=== PATIENT | female | born 1930 | race Caucasian/White ===

== ENCOUNTER 2016-12-04 14:00 | Inpatient (IN) | payer MEDICARE, BC ==
[~2016-12-04] VITALS: Ht 149.9 cm; Wt 86.0 kg
--- NOTE | ~2016-12-04 | HP ---
PATIENT'S NAME: ALMA [facility]A [facility] AGE: 86 Y [address] ROOM: [id number] [place], [place] [address] LOCATION: GPCU ADMIT DATE: 12/04/2016 History & Physical DISCHARGE DATE: FAMILY PHYSICIAN: PHYSICIAN, UNKNOWN ATTENDING PHYSICIAN: PRATIK SPAIN DATE OF SERVICE: CHIEF COMPLAINT: Shortness of breath. HISTORY OF PRESENT ILLNESS: This is an 86-year-old female, who says that she has been experiencing shortness of breath of acute onset for the last 2 months on exertion and progressively getting worse. Just a few days ago at the place where she lives, the medical staff put her on oxygen for hypoxia. She did get some relief when oxygen was placed. However, she still gets shortness of breath on exertion. Today, this morning when she was doing her hair, she felt dizzy and fell to the ground hitting the left frontal area of the head and also the left foot against the back-top, but she did not pass out. The same thing happened two days ago, she also did not pass out. She called for help today after the fall, and she was brought by the medical staff over there at the living facility to the emergency room in [facility], for evaluation. The patient states that she felt weak in general and felt dizzy and then she fell. Her appetite has also been poor recently. Over there in [place], [place], the patient had an EKG performed which was unremarkable with sinus rhythm without any acute ischemic changes, normal NV interval, normal QRS, and normal QTc. The patient also had x-ray of the left knee which was no evidence of fracture or effusion. The patient also had a CT of the head without contrast which showed no acute finding. No mass. No hemorrhage. No fracture. The patient also had a blood work performed, chemistry, and LFT which were unremarkable. The patient was about to be discharged home, but the caregiver told the ER physician over there that the patient was hypoxic and required more oxygen and also complaining of shortness of breath on exertion for the last 2 months. That is when they did a CTPA and it showed pulmonary emboli in the right upper lobe and the right lower lobe and the lateral segment of the middle lobe, all in the right lung and also changes consistent with chronic bronchitis. Also, pulmonary arterial hypertension with dilatation of the central pulmonary arteries. Because of that, [place], called me for transfer due to the finding of the pulmonary emboli. Her blood pressure has been actually high in the 170s, therefore, is not a hemodynamically unstable PE. Her oxygen requirement is 4 L nasal cannula saturating at 94%. There is no chest pain. The patient was transferred here for higher level of care. I instructed the staff over there in [place], PATIENT'S NAME: [facility] AGE: 86 Y [address] ROOM: [id number] [place], [place] [address] LOCATION: GPCU ADMIT DATE: 12/04/2016 History & Physical DISCHARGE DATE: FAMILY PHYSICIAN: PHYSICIAN, UNKNOWN ATTENDING PHYSICIAN: PRATIK SPAIN, to start IV heparin bolus, followed by drip for the PE protocol and send over here. REVIEW OF SYSTEMS: As mentioned in the history of present illness. All other system review are negative, except those mentioned in the History of Present Illness. PAST MEDICAL HISTORY: 1. Likely has COPD from secondhand smoking, exposed to smoke from her co- workers, and she was also a former smoker but only for 2 years with half pack per day. She quit about 40 years ago. She does not use oxygen at home, but was recently put on oxygen due to the PE that was not diagnosed. 2. Hypertension. 3. Anxiety disorder. 4. Hypothyroidism. 5. Coronary artery disease, status post drug-eluting stent x2 many years ago. 6. Diastolic congestive heart failure. 7. Peptic ulcer disease back in 2007. 8. Gastroesophageal reflux disease, secondary to hiatal hernia. 9. History of right breast cancer, status post resection without radiation and without chemotherapy back in 1979, already cured. ALLERGIES: CHLORTHALIDONE, DEMEROL, DIPHENOXYLATE, ATROPINE, FENTANYL, HYDROCHLOROTHIAZIDE, CEFTRIAXONE, LIPITOR, PENICILLIN, AND LESCOL. HOME MEDICATIONS: Currently has been reconciled. SOCIAL HISTORY: The patient was a former cigarette smoker. She quit about 40 years ago. She used to smoke about half pack per day for 2 years, but she was exposed to secondhand smoke for unknown time from her co-worker. She denies any alcohol or any illegal drug use. FAMILY HISTORY: Both parents from coronary artery disease at advanced age. PAST SURGICAL HISTORY: 1. Status post cholecystectomy. 2. Status post right breast cancer, status post resection. 3. Status post appendectomy. 4. Status post hemorrhoidectomy. PATIENT'S NAME: [facility] AGE: 86 Y [address] ROOM: [id number] [place], [place] [address] [facility] ADMIT DATE: 12/04/2016 History & Physical DISCHARGE DATE: FAMILY PHYSICIAN: PHYSICIAN, UNKNOWN ATTENDING PHYSICIAN: PRATIK SPAIN 5. Status post left knee replacement surgery in the past. 6. Status post cataract surgery. 7. Status post 2 drug-eluting stents placed to the LAD many years ago. PHYSICAL EXAMINATION: VITAL SIGNS AT THE TIME OF MY DICTATION: Temperature 97, blood pressure 170/90, heart rate 85, saturation 94% on 4 L nasal cannula, respiratory rate 16. GENERAL APPEARANCE: Alert and oriented x3. A very pleasant female in no acute distress. HEENT: Pupils are equally round and reactive to light. Extraocular muscles are intact. Nasal turbinates are normal bilaterally. Moist oral mucosa. No oral thrush. NECK: No JVD. No carotid bruits. No cervical lymphadenopathy. CARDIOVASCULAR: Regular rate and rhythm. No murmur. No rubs. No gallops. RESPIRATORY: Clear. Chest wall nontender to palpation. ABDOMEN: Soft, nontender, nondistended, normal bowel sounds, no hepatosplenomegaly. EXTREMITIES: No edema in the upper or lower extremity. In the dorsal area of the left foot, there is ecchymosis from her recent fall. Pain to palpation as well in the ecchymosis area. Dorsalis pedis pulses are +2 bilaterally, symmetrical, and present. NEUROLOGIC: Grossly nonfocal. SKIN: Except ecchymosis in the left foot, otherwise no rash, no ulcer, no cyanosis. MUSCULOSKELETAL: No joint pain. No muscle pain, except the pain to palpation in the left foot in the area with ecchymosis. LABORATORY DATA: Laboratory data performed in the outside facility: Chemistry shows sodium 138, potassium 4.5, chloride 98, carbon dioxide 24, glucose 103, blood urea nitrogen 25, creatinine 0.67, calcium 9.1, albumin 3.7, total protein 6.4, AST 19, ALT 12, alkaline phosphatase 77, total bilirubin 0.6, and GFR 83. IMAGING STUDIES: EKG on admission shows sinus rhythm, heart rate of 65 beats per minute without any acute ischemic findings. Left knee x-ray today from the outside facility showed no fracture. CT of the head without contrast today from the outside facility showed no acute finding. CTPA from the outside facility today showed occlusive thrombus within segmental branches at the right upper lobe and the right lower lobe and the PATIENT'S NAME: [facility] AGE: 86 Y [address] ROOM: [id number] [place] [id number] LOCATION: GPCU ADMIT DATE: 12/04/2016 History & Physical DISCHARGE DATE: FAMILY PHYSICIAN: PHYSICIAN, UNKNOWN ATTENDING PHYSICIAN: PRATIK SPAIN lateral segment of the middle lobe. No additional emboli seen on the left. Pleural and parenchymal scarring is noted at the lung bases and the posterior right hemithorax. There are changes of chronic bronchitis as well. No mass or pleural effusion is demonstrated. There is no evidence of lymphadenopathy. Arteriosclerotic calcification and ectasia of the thoracic aorta is noted. There is dilatation of the central pulmonary arteries consistent with pulmonary arterial hypertension. Calcification of the LAD is noted. There is mild right ventricular and right atrial dilatation. Sections through the adrenals show bilateral nodular hyperplasia. ASSESSMENT AND PLAN: 1. Acute hypoxemic respiratory failure, secondary to right-sided pulmonary emboli: Heparin drip per PE protocol. Oxygen nasal cannula with a humidifier to keep the saturation above 90%. Once the patient is more stable, we can transition her to one of the newer agents of anticoagulation given that her kidney function is normal. Further plan depends on the clinical course. 2. Left foot pain: I will get x-ray of the left foot to make sure there is no fracture. 3. Decreased oral intake: She will be on aspiration precaution and fall precaution. I will give her Ensure one can p.o. t.i.d. with meals. She can have a cardiac diet. Encourage oral intake. There is no acute kidney injury, therefore, there is no need for IV hydration. 4. Hypertension: Blood pressure is currently in the 170s. Continue her home medication. 5. Prior history of peptic ulcer disease: This was many years ago. Given that she is on heparin drip right now, I will give her Protonix 40 mg p.o. b.i.d. 6. Chronic obstructive pulmonary disease based on CTPA: Not in exacerbation. There is no wheezing, no rhonchi, no rales, no crackles. Continue oxygen nasal cannula. Nebulization as necessary p.r.n. 7. PT, OT, and fall precaution. 8. Followup plan depends on clinical course. 9. Deep venous thrombosis prophylaxis: She is on heparin drip. Time spent on the day of admission was 40 minutes including chart review, examining the patient, interviewing the patient, addressing all the questions and concerns the patient had, and going over the plan of care with the nurse, the patient, and the patient's friend. PRATIK SPAIN MD PATIENT'S NAME: [facility] AGE: 86 Y [address] ROOM: [place] [address] [facility] ADMIT DATE: 12/04/2016 History & Physical DISCHARGE DATE: FAMILY PHYSICIAN: PHYSICIAN, UNKNOWN ATTENDING PHYSICIAN: PRATIK SPAIN CC/paola /[id number] D: 725 T: 046 HISTORY & PHYSICAL
--- NOTE | ~2016-12-04 | DS ---
PATIENT'S NAME: ALMA [facility]A [facility] AGE: 86 Y [address] ROOM: [id number] [place], [place] [address] LOCATION: GPCU ADMIT DATE: 12/04/2016 Discharge Summary DISCHARGE DATE: 12/08/2016 FAMILY PHYSICIAN: Shital Farrar MD ATTENDING PHYSICIAN: Orlin Garcia FINAL DIAGNOSES: 1. Right pulmonary emboli. 2. Acute hypoxic respiratory failure. 3. Left foot pain. 4. Essential hypertension. 5. Chronic obstructive pulmonary disease. HISTORY OF PRESENT ILLNESS: Please see the history and physical dictated by Dr. Garcia for details of admission. LABORATORY DATA: On admit, white blood cell count 5.8, hemoglobin 14.6, hematocrit 44.9, and platelet count 210, all these values remained stable during the hospital stay. Electrolytes on admission, sodium 139, potassium 4.2, chloride 100, CO2 31, BUN 28, and creatinine 0.8. X-ray of the left foot did not show any abnormalities other than osteopenia. HOSPITAL COURSE: The patient was accepted with a diagnosis of hypoxia with the thought that she may have a pulmonary edema and also evaluated of the left foot because of the falls. She was started on oxygen. She was empirically started on heparin drip. She did proceed with a CT scan, which did in fact show that she had a pulmonary embolism. A decision was to start her on Lovenox and convert her to Coumadin and trying to get her INR into the 2 range. Care Management was asked to see her as well. Her heart rates were on the low-side. She was monitored. She was improving; however, her INR was very slow to budge. I had a long discussion with the family regarding different anticoagulants, the risks and benefits of either, they did opt to start Eliquis, and decision was made to use this. Eliquis was started at 10 mg twice daily for 7 days then 5 mg twice daily with a plan for it lasting for 6 months. The Coumadin was withheld. The patient was planning to return to her assisted living facility that she was in [place], [place]. She did feel lightheaded and dizzy; so, the plan was to hold her for another day until she felt a little bit more stable. She did in fact feel better on the next day. She was felt to be stable for discharge. DISCHARGE MEDICATIONS: 1. Amlodipine 5 mg twice daily. 2. Proventil inhaled 2 puffs every 6 hours as needed. 3. Cough drops one as needed. 4. Propylene glycol eyedrops 1 drop as needed. PATIENT'S NAME: ALMA ROSA [facility] AGE: 86 Y [address] ROOM: [place] [address] LOCATION: GPCU ADMIT DATE: 12/04/2016 Discharge Summary DISCHARGE DATE: 12/08/2016 FAMILY PHYSICIAN: Shital Farrar MD ATTENDING PHYSICIAN: Orlin Garcia 5. Xanax 0.25 mg every 6 hours as needed for anxiety. 6. Synthroid 75 mcg daily. 7. Nitro 45 mg at bedtime. 8. Troy-3 fish oil 1 tablet daily. 9. Multivitamin daily. 10. Metoprolol tartrate 25 mg twice daily. 11. Pepcid 20 mg daily. 12. Calcium carbonate 1200 mg daily. 13. Gabapentin 800 mg twice daily. 14. Cholestyramine 4 g at bedtime. 15. Acetaminophen 500 mg every 4 hours. 16. Saline nose spray as needed. 17. Sodium chloride tablets 1 g every 48 hours. 18. Calcium carbonate 1-2 every 2 hours. 19. Tylenol 500-1000 mg every 6 hours as needed. 20. Lasix 40 mg daily. 21. Spironolactone 12.5 mg daily. 22. Quinapril 20 mg twice daily. 23. Colace 100 mg at bedtime. 24. Myrbetriq 25 mg every 48 hours. 25. MiraLAX 17 g daily. 26. Apixaban 10 mg twice daily for 7 days and then 5 mg twice daily. 27. Aspirin 81 mg daily. Overall, I did discuss this discharge at length with the patient's daughter and with Dr. Farrar, the patient's primary care provider. TRACE GARDNER MD LAW/modl /[id number] d: 12/23/16614 t: 01/06/17 1642, DISCHARGE SUMMARY
[2016-12-04] MEDS ORDERED: NORVASC5 MG PO (15:49)
[2016-12-04] MEDS ORDERED: PROVENTIL OR V6.7 GM INH (15:50)
[2016-12-04] MEDS ORDERED: COUGH DROPS1 EAC1 PO (15:51)
[2016-12-04] MEDS ORDERED: XANAX0.25 MG PO (15:52)
[2016-12-04] MEDS ORDERED: LUBRICANT EYE D10 ML OPHTH (15:52)
[2016-12-04] MEDS ORDERED: PLAVIX75 MG PO (15:53)
[2016-12-04] MEDS ORDERED: LEVOTHROID(SYN75 MCG PO (15:53)
[2016-12-04] MEDS ORDERED: IMDUR30 MG PO (15:55)
[2016-12-04] MEDS ORDERED: CENTRUM SILVER1 TAB PO (15:56)
[2016-12-04] MEDS ORDERED: FISH OIL 1,2001 EAC1 PO (15:56)
[2016-12-04] MEDS ORDERED: LOPRESSOR25 MG PO (15:58)
[2016-12-04] MEDS ORDERED: PEPCID20 MG PO (15:58)
[2016-12-04] MEDS ORDERED: CALCIUM600 MG PO (15:59)
[2016-12-04] MEDS ORDERED: NEURONTIN400 MG PO (16:00)
[2016-12-04] MEDS ORDERED: CHOLESTYRAMINE378 GM PO (16:02)
[2016-12-04] MEDS ORDERED: TYLENOL EXTRA500 MG PO ×2 (16:04→16:16)
[2016-12-04] MEDS ORDERED: SALINE NOSE SPR45 ML NOSE (16:09)
[2016-12-04] MEDS ORDERED: NACL TABS1 GM PO (16:11)
[2016-12-04] MEDS ORDERED: TUMS REGULAR ST1 TAB PO (16:11)
[2016-12-04] MEDS ORDERED: LASIX40 MG PO (16:17)
[2016-12-04] MEDS ORDERED: ALDACTONE25 MG PO (16:18)
[2016-12-04] MEDS ORDERED: COLACE100 MG PO (16:19)
[2016-12-04] MEDS ORDERED: ACCUPRIL20 MG PO (16:19)
[2016-12-04] MEDS ORDERED: MYRBETRIQ25 MG PO (16:20)
[2016-12-04] MEDS ORDERED: MIRALAX PO527 GM/BOT PO (16:21)
--- NOTE | 2016-12-04 16:34 | NUR ---
Pt is 86 y/o female admit for pulmonary emboli for hospitalists. PT alert and oriented x3. Lives at an assisted living with her . PT walks with walker usually. Using bedside commode for now due to oxygen demand. Hx migraines,htn,cad,DVT,hypercholest,hypothyroid,stents,GI bleed,ulcer, breast cancer,leaking/dribbling,polyps. Maintenance Person of assisted living here with her and states 2 days ago she fell getting into bed and today she was doing her hair and she fell. Voided large amt after arrival. Wears a pull up type of depend and an extra pad inside.
[2016-12-04 16:57] LABS: BASOPHIL % 0.5 %; EOSINOPHIL # 0.2 K/uL (0.0-0.5); EOSINOPHIL % 3.3 %; HEMATOCRIT 44.9 % (30.0-46.0); HEMOGLOBIN 14.6 g/dL (10.0-15.0); IMMATURE GRANULOCYTE % 0.7 %; LYMPHOCYTE % 17.7 %; MCH 30.6 pg (27.0-34.0); MCHC 32.5 gm/dL (32.0-36.5); MCV 94.1 fl (83.0-98.0); MONOCYTE # 0.7 K/uL (0.0-1.0); MONOCYTE % 11.3 %; MPV 9.5 fl (9.4-12.4); NEUTROPHIL # (ANC) 3.8 K/uL (1.8-7.8); NEUTROPHIL % 66.5 %; NRBC % 0 /100WBC (0-0.00); PLATELET COUNT 210 K/uL (150-450); RDW-CV 13.2 % (11.9-14.6); WBC 5.8 K/uL (4.0-11.0)
[2016-12-04 16:58] LABS: RBC 4.77 M/uL (3.00-5.00)
--- NOTE | 2016-12-04 17:42 | NUR ---
Significant Event: A/OX3, VSS ON 4L PER NC. PT. ADMITED TO PCU FOR MULTIPLE PE. HEPARIN STARTED @ 1300 UNITS/HR, NEXT PTTHP DUE AT 2226 TO R)AC IV. PT. GETS UP 2 ASSIST TO BSC, GAIT BELT, WALKER. NO COMPLAINTS OF PAIN. 2nd & 3rd TOES TO LEFT FOOT ARE BRUISED UP TO TOP OF FOOT, FROM FALL @ [facility]. COOPERATIVE WITH CARES. Follow up: CONTINUE WITH POC.
--- NOTE | 2016-12-05 04:22 | NUR ---
Significant Event: Patient A/Ox3. VSS on 4L NC. One high blood pressure of 186/77, but patient had just received her Norvasc that she normally takes in the morning. WHen blood pressure was rechecked following, it was trending down. Other Blood pressures were 120s-140s. Up 1-assist to bedside commode with gait belt and walker. Bed alarm on at all times and patient not left unsupervised when on commode due to patient impulsiveness. Follow Up: Continue POC
--- NOTE | 2016-12-05 17:01 | NUR ---
Significant Event: A/OX3, VSS DOWN TO 3L PER NC. PT. GETS UP 1ASSIST TO BS, CHAIR WITH GAIT BELT/WALKER. NO COMPLAINTS OF PAIN TODAY. HEPARIN DRIP STILL RUNNING @ 1300 UNITS/HR, NEXT PTTHP DUE AT 1740 TO R)AC IV. BM X2 TODAY. INCONTIENT AT TIMES, 300mL UOP. Follow up: CONTINUE WITH POC.
[2016-12-06 03:50] LABS: BASOPHIL % 0.5 %; EOSINOPHIL # 0.2 K/uL (0.0-0.5); HEMATOCRIT 37.4 % (30.0-46.0); HEMOGLOBIN 12.4 g/dL (10.0-15.0); IMMATURE GRANULOCYTE % 0.5 %; LYMPHOCYTE % 18.3 %; MCH 30.9 pg (27.0-34.0); MCHC 33.2 gm/dL (32.0-36.5); MCV 93.3 fl (83.0-98.0); MONOCYTE # 0.9 K/uL (0.0-1.0); MONOCYTE % 16.5 %; MPV 9.9 fl (9.4-12.4); NEUTROPHIL # (ANC) 3.5 K/uL (1.8-7.8); NEUTROPHIL % 61.2 %; NRBC % 0 /100WBC (0-0.00); PLATELET COUNT 199 K/uL (150-450); RBC 4.01 M/uL (3.00-5.00); WBC 5.7 K/uL (4.0-11.0)
--- NOTE | 2016-12-06 04:14 | NUR ---
Significant Event: Patient A/Ox3. VSS on 3-4L NC. Heparin gtt d/c'd at 1930. Lovenox and coumadin started, first doses given last night. Patient up 1-assist to bedside commode. Follow Up: Home wednesday?
--- NOTE | 2016-12-06 16:29 | NUR ---
Significant Event: A/OX3, VSS ON 2L PER NC. TYLENOL GIVEN X2 TODAY FOR COMPLAINTS OF BACK/SIDE PAIN. PT. HAS BEEN UP WITH PT/OT AND WALKED IN HALLS TODAY X2 WITH WALKER/GAIT BELT. UP TO BATHROOM SEVERAL TIMES. BRUISE TO TOES ON LEFT FOOT IS HEALING. BM X2 TODAY. ALDACTONE, LASIX, LISINOPRIL & METOPROLOL HELD THIS AM D/T BP OF 97/52, BP THIS AFTERNOON WAS 150/65. DAUGHTER IN ROOM. PT. MIGHT D/C TO [facility] TOMORROW, MIGHT NEED OXYGEN SET UP BEFORE DISMISSAL. PT. IS HAVING MORE PAIN TO SIDE OF RIBS TODAY. SLIV TO R)AC. Follow up: CONTINUE WITH POC.
--- NOTE | 2016-12-07 04:14 | NUR ---
Significant Event: Patient A/Ox3. VSS on 2L NC. SBP 120s-160. HR 56-73. Patient has had no complaints of pain this evening. Up to bathroom 1-assist with walker and gait belt. Follow up: Home today?
[2016-12-07 05:51] LABS: BASOPHIL % 0.6 %; EOSINOPHIL # 0.3 K/uL (0.0-0.5); EOSINOPHIL % 4.8 %; IMMATURE GRANULOCYTE % 0.6 %; LYMPHOCYTE # 1.1 K/uL (0.8-4.0); LYMPHOCYTE % 20.2 %; MCH 31.3 pg (27.0-34.0); MCHC 33.3 gm/dL (32.0-36.5); MCV 93.8 fl (83.0-98.0); MONOCYTE # 0.9 K/uL (0.0-1.0); MONOCYTE % 17.3 %; MPV 9.7 fl (9.4-12.4); NEUTROPHIL # (ANC) 2.9 K/uL (1.8-7.8); NEUTROPHIL % 56.5 %; NRBC % 0 /100WBC (0-0.00); PLATELET COUNT 211 K/uL (150-450); RBC 4.16 M/uL (3.00-5.00); RDW-CV 13.1 % (11.9-14.6); WBC 5.2 K/uL (4.0-11.0)
[2016-12-07 06:00] LABS: PROTIME 10.7 SECONDS (9.6-11.1)
[2016-12-07 14:06] LABS: BASOPHIL % 0.2 %; EOSINOPHIL # 0.1 K/uL (0.0-0.5); EOSINOPHIL % 2.8 %; HEMATOCRIT 38.9 % (30.0-46.0); HEMOGLOBIN 12.9 g/dL (10.0-15.0); IMMATURE GRANULOCYTE % 0.4 %; LYMPHOCYTE # 0.9 K/uL (0.8-4.0); LYMPHOCYTE % 17.8 %; MCH 30.9 pg (27.0-34.0); MCHC 33.2 gm/dL (32.0-36.5); MCV 93.3 fl (83.0-98.0); MONOCYTE # 0.9 K/uL (0.0-1.0); MONOCYTE % 18.1 %; MPV 9.5 fl (9.4-12.4); NEUTROPHIL % 60.7 %; NRBC % 0 /100WBC (0-0.00); PLATELET COUNT 208 K/uL (150-450); RBC 4.17 M/uL (3.00-5.00); WBC 4.9 K/uL (4.0-11.0)
[2016-12-07 14:25] LABS: ANION GAP 12.2 (10.0-19.0); BLOOD UREA NITROGEN 28 mg/dL (6-24); CALCIUM 8.5 mg/dL (8.5-10.5); CHLORIDE 100 mMol/L (96-110); CO2 31 mMol/L (22-32); CREATININE 0.8 mg/dL (0.5-1.1); ESTIMATED GFR (MDRD EQUATION) > 60; MAGNESIUM 1.9 mg/dL (1.3-2.6); PHOSPHORUS 2.2 mg/dL (2.5-4.9); POTASSIUM 4.2 mMol/L (3.7-5.1); SODIUM 139 mMol/L (135-145)
--- NOTE | 2016-12-07 15:58 | NUR ---
Introduced self and role of care management to patient and daughter. She lives at [facility] in [facility] with her . She states that she is able to do some of her own ADL's but the staff does help some. She eats her meals in the dining room. She uses a walker and has O2 at home. She uses [facility] in [place]. I did call and speak with [facility] to see if they could do lovenox injections to bridge coumadin but the only have med aides and can not. After Dr Donis spoke with patient and daughter they are wondering what Eliradha would cost with her insurance. I called [facility]. and had them check on dugan. For a months supply $79.30. Patient daughter has elected to go with [facility]. [facility] will delivery filled script to [facility]. I also called and spoke with Letitia at [facility] in [facility] to set up HHC on discharge. Referral information faxed. Will continue to follow.
--- NOTE | 2016-12-07 16:42 | NUR ---
Significant Event: A/OX3, VSS ON 2L PER NC, SBP 130-150'S. PT. GETS UP SBA WITH WALKER, GAIT BELT. WALKED IN HALLS X2 WITH PHYSICAL THERAPY. PT. SHOWERED TODAY. SLIV TO R)AC. NO COMPLAINTS OF PAIN THIS SHIFT. PT. WILL START ON ELIQUIS TONIGHT, COUMADIN & LOVENOX D/C'D. PT. WILL DISMISS BACK TO [facility]ROW. DISMISSAL MEDS HAVE BEEN FILLED OUT EXCEPT FOR PLAVIX, WILL DECIDE IN AM. Follow up: CONTINUE WITH POC.
--- NOTE | 2016-12-08 04:57 | NUR ---
A/O. HR 50-70s. SBP 100-140s. 2L O2 NC. AFEBRILE. SBA WALKER. STRESS INCONTINCE. BMx2. DISIMISSAL TODAY TO [facility].
[2016-12-08] MEDS ORDERED: ELIQUIS5 MG PO ×2 (10:05→10:07)
[2016-12-08] MEDS ORDERED: ASPIRIN LO-DOSE81 MG PO ×2 (10:25→10:26)
--- NOTE | 2016-12-08 11:00 | NUR ---
Called and updated Leyda Zepeda that patient will be returning today. [facility]charge [facility] and [facility].
--- NOTE | 2016-12-08 11:31 | NUR ---
ORDERS RECEIVED TO DISCHARGE PATIENT HOME. TELE MONITOR AND IV DC'D.DISCHARGE INSTRUCTIONS EXPLAINNED AND GIVEN TO PATIENT, AND DAUGHTER.BVERBALIZED UNDERSTANDING.DAUGHTER TRANSPORTING TO [facility].TAKEN DOWNSTAIRS PER WHEELCHAIR BY ORE MINER BLASTING ON THE FLOOR.
== END 2016-12-08 11:00 | disposition disaster alternative care site (69) | DRG 175 ==
LOC: GPCU 15:37
PROVIDERS: Internal Medicine; ADMIT Internal Medicine
DX: I26.99 Other pulmonary embolism without acute cor pulmonale (principal); J96.01 Acute respiratory failure with hypoxia; I50.30 Unspecified diastolic (congestive) heart failure; M25.572 Pain in left ankle and joints of left foot; I10 Essential (primary) hypertension; J44.9 Chronic obstructive pulmonary disease, unspecified; Z87.891 Personal history of nicotine dependence; Z77.22 Contact with and (suspected) exposure to environmental tobacco smoke (acute) (chronic); F41.9 Anxiety disorder, unspecified; E03.9 Hypothyroidism, unspecified; I25.10 Atherosclerotic heart disease of native coronary artery without angina pectoris; K21.9 Gastro-esophageal reflux disease without esophagitis; Z85.3 Personal history of malignant neoplasm of breast; Z87.11 Personal history of peptic ulcer disease; Z86.711 Personal history of pulmonary embolism; Z79.01 Long term (current) use of anticoagulants
CPT/HCPCS: J1644; J1650